=== PATIENT | male | born 1970 | race Hispanic/Latino ===

== ENCOUNTER 2016-10-16 18:19 | Emergency (ER) | payer OTHER ==
[2016-10-16 18:44] VITALS: BP 109/75
[2016-10-16] MEDS ORDERED: DICLOFENAC SODI75 M2 PO (18:45)
[2016-10-16] MEDS ORDERED: LEVOCETIRIZINE D5 M1 PO (18:45)
[2016-10-16] MEDS ORDERED: ASTEPRO205.5 MCG1 NASB (18:45)
--- NOTE | 2016-10-16 19:33 | ED ANIMAL BITE/WOUND CHECK ---
History of Present Illness General Chief Complaint: Animal/Insect Bite Stated Complaint: "I GOT BIT BY A DOG" Source: patient, old records Exam Limitations: no limitations Vital Signs & Intake/Output Vital Signs & Intake/Output Vital Signs Date Time Temp Pulse Resp B/P Pulse O2 O2 Flow FiO2 Ox Delivery Rate 10/16 1844 98.1 96 20 109/75 97 Allergies Coded Allergies: No Known Allergies (10/16/16) Reconcile Medications Amoxicillin/Potassium Clav (Augmentin 875-125 Tablet) 875 MG-125 MG TABLET 1 TAB PO BID PPX Azelastine HCl (Astepro) 205.5 MCG (0.15 %) SPRAY.PUMP 2 SPRAY NASB BID ALLERGIES (Reported) Diclofenac Sodium 75 MG TABLET.DR 1 TAB PO BID PAIN (Reported) Levocetirizine Dihydrochloride 5 MG TABLET 1 TAB PO DAILY ALLERGIES (Reported ) Triage Note: PER PT BIT IN RT THIGH BY DOG NOT HIS DOG UNKNOWN IF UTD WITH SHOTS BUT PER PT DOG FROM POUND 3 WEEKS AGO Triage Nurses Notes Reviewed? yes Onset: Abrupt Duration: hour(s): (1), constant Timing: recent history Injury Environment: neighbor's Is Injury an Animal Bite? Yes Animal Type: dog Context of Animal Attack: entered animal's domain Appearance of Animal: appeared well Animal Immunization Status: up to date Observation/Capture: animal known/obs x10 days Severity of Attack: bitten Severity: moderate Severity Numbers: 6 No Modifying Factors: none Associated Symptoms: DENIES HPI: 46-year-old male with no medical history presents to emergency room status post sustaining injury to his right proximal thigh. The patient states he was doing work at a house and the dog bit him. According to the family the patient was recently in the pounds which they got him 3 weeks ago and that he is up-to-date on its shots. Patient's last tetanus was a partially 7 years ago. He is now complaining of 6 out of 10 throbbing aching pain to the thigh that is worse with sitting. He has not taken anything for symptoms. No fever no chills no discharge or bleeding. He denies any other injury (ASHLEY THOMPSON) Past History Travel History Traveled to [place] past 21 day No Medical History Any Pertinent Medical History? see below for history Neurological: NONE EENT: NONE Cardiovascular: NONE Respiratory: SEASONAL ALLERGIES Gastrointestinal: NONE Hepatic: NONE Renal: NONE Musculoskeletal: SHOULDER PAIN Psychiatric: NONE Endocrine: NONE Surgical History Surgical History: none Psychosocial History What is your primary language Latvian Tobacco Use: Never used Family History Hx Contributory? No (ASHLEY THOMPSON) Review of Systems Review of Systems Constitutional: Reports: see HPI. All Other Systems: Reviewed and Negative Comments Review of systems: See HPI, All other systems negative. Constitutional, no chills no fever, no malaise HEENT: no sore throat no congestion Cardiovascular: No chest pain , no palpitation Skin, no rashes, no change in skin Respiratory: No dyspnea no cough no sputum GI: No nausea no vomiting Muscle skeletal: No joint pain, no joint swelling, no back pain, no neck pain, Neurologic: no headache Psych: No stress Heme/endocrine: No bruising no bleeding ImmunO: No lymphadenopathy (ASHLEY THOMPSON) Physical Exam Physical Exam General Appearance: well developed/nourished, no apparent distress Comments: Well-developed well-nourished patient in no apparent distress. HEENT: Atraumatic, extraocular motion intact Neck: Supple, FROM, Back: FROM, Cardiovascular: Regular rate and rhythms no murmurs rubs or gallops, Respiratory: No respiratory distress. Patient speaking in full complete sentences. Breath sounds clear to auscultation bilaterally: NO W/R/R Extremities: full range of motion Neuro: Alert and oriented x3 Skin: Warm & dry; 2 small superficial puncture forbes noted to the right lateral thigh, with surrounding ecchymosis mild tenderness on palpation no erythema induration or fluctuance no discharge or bleeding Psych: Mood affect normal, normal memory normal judgment. (ASHLEY THOMPSON) Progress Differential Diagnosis: abscess, cellulitis, joint infection, tenosysnovitis Plan of Care: Current Medications Sig/Timothy Start time Last Medication Dose Stop Time Status Admin Tetanus/Diphtheria 0.5 ML ONCE ONE 10/17 1999 AC Toxoids Adsorbed 10/16 2000 (Decavac) Patient medicated with tetanus IM I had an extensive conversation regarding need for close follow up with their primary care physician this week as well as return precautions. I answered all of their questions, they feel comfortable with the plan and follow-up care. I discussed the medications that they will receive with the patient. I gave them signs and symptoms that could indicate an adverse reaction. I have advised them to limit their activities until they can see how they respond to the medication. (ASHLEY THOMPSON) Departure Departure Time of Disposition: 1946 Disposition: HOME OR SELF CARE Condition: Stable Clinical Impression Primary Impression: Dog bite Referrals: Luda MALAVE MD (PCP/Family) Additional Instructions: Augmentin as discussed keep area clean and covered. Return or follow-up with her primary care physician with any concerns or signs of infection. Redness warm swelling discharge fever or chills. The Augmentin was sent to your pharmacy Departure Forms: Customer Survey General Discharge Information Prescriptions: Current Visit Scripts Amoxicillin/Potassium Clav (Augmentin 875-125 Tablet) 1 TAB PO BID #14 TAB (ASHLEY THOMPSON) PA/BEER BREWER Co-Sign Statement Statement: ED Attending supervision documentation- [] I saw and evaluated the patient. I have also reviewed all the pertinent lab results and diagnostic results. I agree with the findings and the plan of care as documented in the PA's/BEER BREWER's documentation. [X] I have reviewed the ED Record and agree with the PA's/BEER BREWER's documentation. [] Additions or exceptions (if any) to the PAs/BEER BREWER's note and plan are summarized below: [] (MIRA ROJAS,SANJEEV Willingham)
[2016-10-16] MEDS ORDERED: AUGMENTIN 875-1 EACH PO (19:48)
== END 2016-10-16 20:13 ==
LOC: ERH 18:19
DX: S71.151A Open bite, right thigh, initial encounter (principal); W54.0XXA Bitten by dog, initial encounter
CPT/HCPCS: 90471